=== PATIENT | male | born 1985 | race Caucasian/White ===

== ENCOUNTER 2020-11-13 09:22 | Emergency (ER) | payer BC, SELFPAY ==
--- NOTE | 2020-11-13 09:35 | ED.GENADULT ---
HPI - General Adult General Chief complaint: Unspecified Stated complaint: Chills,Rash Time Seen by Provider: 11/13/20 09:44 Source: patient and RN notes reviewed Mode of arrival: ambulatory Limitations: no limitations History of Present Illness HPI narrative: 35-year-old male presents concern for rash. Reports yesterday he had an itchy rash began on his legs and spread to his arms and torso. Reports he also had episodes of chills and body aches. He denies any fever, sore throat, headache, rhinorrhea, nasal congestion, cough, shortness of breath. Reports he was vaccinated for Covid. He denies known sick contacts. He reports taking Benadryl which improved the rash and itching. Reports after the Benadryl wore off the rash returned. He denies any swollen lips, swollen tongue, trouble breathing, nausea, vomiting, diarrhea. MD complaint: Rash Related Data Allergies Allergy/AdvReac Type Severity Reaction Status Date / Time No Known Allergies Allergy Verified 11/13/20 09:51 Review of Systems Review of Systems: CONSTITUTIONAL: Denies malaise, sweats, or fever. Reports chills ENT: Denies rhinorrhea, congestion, sinus pain, otalgia or sore throat. CARDIOVASCULAR: Denies chest pain, palpitations, or edema. RESPIRATORY: Denies cough or dyspnea. GASTROINTESTINAL: Denies abdominal pain, nausea, vomiting, diarrhea SKIN: Reports itchy rash that changes in nature. Reports rash on the legs, arms, torso MUSCULOSKELETAL: Reports myalgia. NEUROLOGIC: Denies headache. All systems reviewed & are unremarkable except as noted in HPI and below PMFSH Comments At time of signature, agree with nursing past medical, surgical, social and family history. There is no relevant family history pertinent to the presenting complaint Exam Narrative: GENERAL: Well-appearing, well-nourished, and in no acute distress. HEAD: Normocephalic, atraumatic. EYES: PERRLA, conjunctivae clear ENT: Mucous membranes moist. Oropharynx without edema, erythema or lesions. TM pearly [place] with sharp light reflex, auditory canal unremarkable NECK: Supple. No lymphadenopathy CHEST: Clear to auscultation, no wheezing, rales, or rhonchi, breath sounds equal. No respiratory distress. HEART: Regular rate and rhythm. SKIN: Warm, dry. Urticarial patches noted on the back, abdomen, bilateral legs. NEURO: Alert and oriented x3. PSYCH: Normal mood and affect Course Course Emergency Course: Patient is aware of diagnosis, understands and agrees to treatment plan. Anticipatory guidance given. Patient agrees to follow-up as directed and is aware of reasons to seek care at the emergency department. Portions of this record may have been created with voice recognition software Vital Signs Vital signs: Reviewed. Pt has been instructed to follow up with his primary care provider within the next week regarding his elevated blood pressure today. Medical Decision Making MDM Narrative Medical decision making narrative: Does not appear at this time to be erythema multiforme, bullous, SJS, TEN; no evidence at this time to suggest RMSF, endocarditis or Lyme disease; patient looks well, nontoxic and is tolerating oral intake; no neurologic signs or symptoms; no headache, photophobia or neck pain; afebrile; appropriate for initial outpatient treatment; discussed the importance of follow-up, patient agrees; question, viral exanthema, contact dermatitis, allergic dermatitis, eczema, urticaria. No soft palate or uvula edema, no tongue, lip edema or other mucosal involvement, no respiratory compromise, no stridor, no wheezing, no wheezing, no history of syncope, no hypotension, no nausea, vomiting, or diarrhea. Instructed patient to go to nearest ER immediately for any worsening symptoms including but not limited to: fever, spreading rash, pain, sore throat, headache, dizziness, chest pain, trouble breathing, or any symptoms concerning to the patient. Lab Data Lab results reviewed: Yes I reviewed the patien
[2020-11-13 09:36] VITALS: BP 123/82; PULSE 107; RESP 16; TEMP 36.9; O2SAT 100
== END 2020-11-13 10:21 | disposition home or self-care (01) ==
PROVIDERS: Emergency Provider Nurse Practitioner
DX: R21 Rash and other nonspecific skin eruption (principal); Z20.822 Contact with and (suspected) exposure to COVID-19
CPT/HCPCS: 87426; 99203; C9803; G0463

== ENCOUNTER 2020-11-15 08:16 | Emergency (ER) | payer BC, SELFPAY ==
[2020-11-15 08:29] VITALS: BP 120/80; PULSE 88; RESP 16; TEMP 36.2; O2SAT 99
--- NOTE | 2020-11-15 08:33 | ED.MALEGU ---
HPI - Male Genitourinary General Chief complaint: Urogenital-Male Stated complaint: painful urination Source: patient and RN notes reviewed Limitations: no limitations History of Present Illness HPI Narrative: The uncircumcised patient, previously mostly healthy, presents with urinary symptoms. Patient states he has a couple day history of urinary frequency, urgency, dysuria associated with rare pink-tinged hematuria. Patient states he has a prior history of UTI; no fever, low back pain, vomiting/diarrhea, rash, discharge. Symptoms are mild, worse with micturition ; patient advised to follow-up with his primary doctor. Related Data Allergies Allergy/AdvReac Type Severity Reaction Status Date / Time No Known Allergies Allergy Verified 11/15/20 08:23 Review of Systems Review of Systems: General/Constitutional: No weight loss,fever Eyes: N0: Redness,discharge Ears/Nose/Throat: No: Epistaxis,ear discharge Respiratory: Denies: Hemoptysis Gastrointestinal: No Vomiting, Bleeding-rectal Skin: No Lumps, eruption Neurologic: No Focal Weakness,Sz Hematologic: Denies: Petechiae/Purpura Psychiatric: No: Suicida ideationl All Other Systems: Reviewed and Negative PMFSH Comments At time of signature, agree with nursing past medical, surgical, social and family history. There is no relevant family history pertinent to the presenting complaint Exam Narrative: General Appearance: Well appearing, Conjunctiva clear Ears: External ear normal Nose: Normal nose Mouth/Throat: Normal appearing, Normal lips, Supple Respiratory: Airway patent, No respiratory distress Abdomen: Soft, Non-tender; bilateral descended testicles no inguinal hernia, uncircumcised phallus Musculoskeletal: Full ROM Skin: Warm, Dry Neurological: A&O x3, Normal affect Course Vital Signs Vital signs: Vital Signs Temperature 97.2 F L 11/15/20 08:29 Pulse Rate 88 11/15/20 08:29 Respiratory Rate 16 11/15/20 08:29 Blood Pressure 120/80 11/15/20 08:29 Pulse Oximetry 99 11/15/20 08:29 Temperature 97.2 F L 11/15/20 08:29 Pulse Rate 88 11/15/20 08:29 Respiratory Rate 16 11/15/20 08:29 Blood Pressure 120/80 11/15/20 08:29 Pulse Oximetry 99 11/15/20 08:29 MDM - Male Genitourinary Lab Data Labs: Urine Glucose Negative Reference Range: Negative Urine Bilirubin 1+ Reference Range: Negative Urine Ketone Negative Reference Range: Negative Urine Specific [place] 1.030 Reference Range:1.001-1.035 Urine Blood 3+ Reference Range: Negative * * Urine pH 5.5 Reference Range: 5.0-9.0 Urine Protein 2+ Reference Range: Negative Urine Urobilinogen 0.2 Reference Range: 0.2-1.0 Urine Nitrate Negative Reference Range: Negative Urine Leukocyte Trace Reference Range: Negative Urine Color [place] Reference Range: Yellow Urine Characteristics Clear Urine Characteristics Clear Discharge Plan Discharge Clinical Impression: Urinary tract infection Qualifiers: Urinary tract infection type: site unspecifie
== END 2020-11-15 08:40 | disposition home or self-care (01) ==
PROVIDERS: Emergency Provider Emergency Medicine
DX: N39.0 Urinary tract infection, site not specified (principal)
CPT/HCPCS: 81003; 87077; 87086; 87088; 87186; 87491; 87591; 99213; G0463

== ENCOUNTER 2021-09-22 08:30 | Emergency (ER) | payer OTHER, SELFPAY ==
[2021-09-22 08:39] VITALS: BP 131/82; PULSE 98; RESP 16; TEMP 36.4; O2SAT 100
--- NOTE | 2021-09-22 09:11 | ED.MALEGU ---
HPI - Male Genitourinary General Chief complaint: Urogenital-Male Stated complaint: Pain in testicles Time Seen by Provider: 09/22/21 09:11 Source: patient Mode of arrival: ambulatory Limitations: no limitations History of Present Illness HPI Narrative: 35 yo M presents with c/o fatigue, bodyaches and low grade temp for 3 to 4 days. Saw PCP and has neg covid, strep and flu test. Not having any URI symptoms. Reports aching to both testicles for 3 days without swelling, color change. No penile discharge, no concern for STI. hx of UTI, epididymitis. Thinks he needs abx for urinary related infection. Having low ABD pain only when testicles ache. did have back pain but resolved. Feels was more muscular related to playing with children. is aware of testicular torsion and stating pain is very mild and not concerned for that. All systems reviewed and negative except as noted above. Related Data Allergies Allergy/AdvReac Type Severity Reaction Status Date / Time No Known Allergies Allergy Verified 09/22/21 09:03 Review of Systems Review of Systems: CONSTITUTIONAL: Reports fatigue, fever, body aches. EYES: Denies visual changes, redness, or discharge. ENT: Denies rhinorrhea, congestion, sore throat, or otalgia. CARDIOVASCULAR: Denies chest pain, palpitations, or edema. RESPIRATORY: Denies cough or dyspnea. GASTROINTESTINAL: Denies abdominal pain, nausea, vomiting, or diarrhea. GENITOURINARY: Denies dysuria or hematuria. Reports intermittent aching to bilateral testicles. SKIN: Denies rash or itching. MUSCULOSKELETAL: Denies back pain, joint pain, or myalgia. NEUROLOGIC: Denies headache, numbness, or weakness. PSYCHIATRIC: Denies anxiety or depression. All other systems reviewed are negative, except as documented in HPI. PMFSH Comments At time of signature, agree with nursing past medical, surgical, social and family history. There is no relevant family history pertinent to the presenting complaint. Exam Narrative: GENERAL: This is a well-nourished, well-developed patient, in no apparent distress. HEAD: normocephalic, atraumatic. EYES: PERRL. Sclera clear/white. Vision is grossly intact. EARS: External ears normal NOSE: External nose normal NECK: Neck supple, non-tender without lymphadenopathy, masses or thyromegaly. CARDIOVASCULAR: Regular rate and rhythm without murmurs, gallops, or rubs. RESPIRATORY: Clear to auscultation. Breath sounds equal bilaterally. No wheezes, rales, or rhonchi. GASTROINTESTINAL: Abdomen soft, non-tender, nondistended. Bowel sounds are active. No hepato-splenomegaly, or palpable masses. No guarding. SKIN: warm, Dry, intact with no suspicious lesions or rash, good texture and turgor. NEURO: awake, alert, and oriented to person, place and time. There were no obvious focal neurologic abnormalities. Genital Exam: pt deferred EXTREMITIES: No joint tenderness, effusion, or edema noted. BACK: Nontender without deformity. No CVA tenderness. Course Course Level of Care: Express Care Visit Vital Signs Vital signs: Vital Signs Temperature 36.4 C L 09/22/21 08:39 Pulse Rate 98 09/22/21 08:39 Respiratory Rate 16 09/22/21 08:39 Blood Pressure 131/82 09/22/21 08:39 Pulse Oximetry 100 09/22/21 08:39 Oxygen Delivery Room Air 09/22/21 08:39 Temperature 36.4 C L 09/22/21 08:39 Pulse Rate 98 09/22/21 08:39 Respiratory Rate 16 09/22/21 08:39 Blood Pressure 131/82 09/22/21 08:39 Pulse Oximetry 100 09/22/21 08:39 Oxygen Delivery Room Air 09/22/21 08:39 reviewed MDM - Male Genitourinary MDM Narrative Medical decision making narrative: will treat pt with abx today due to symptoms and hx of UTI/epipdidymitis. denies concern for STI. glucose 3+. fingerstick glucose 104. Does not want urine culture sent. States last time bill was over $1,000. He also does not want KUB. has never had kidney stone and does not feel pain is bad enought to be kidney stone. reports he will go to th
[2021-09-22 09:27] LABS: Glucose Point of Care 104 mg/dl (65-105)
== END 2021-09-22 09:46 | disposition home or self-care (01) ==
PROVIDERS: Emergency Provider Nurse Practitioner Family
DX: N50.812 Left testicular pain (principal); N50.811 Right testicular pain; R50.9 Fever, unspecified
CPT/HCPCS: 81003; 82948; 99213; G0463

== ENCOUNTER → 2022-01-17 14:00 | Outpatient (CLI) | payer OTHER, SELFPAY ==
--- NOTE | ~2022-01-17 | XR_ITS ---
EXAMINATION: XR thoracic spine 3V DATE: 01/17/2022 14:11 INDICATION: Mid back pain. TECHNIQUE: 3 views of thoracic spine were obtained. COMPARISON: None. FINDINGS: Vertebral body heights are normal. There is mild chronic anterior wedging of T6, T7, and T8 vertebral bodies. There is mildly decreased disc height at T5-T6 and T7-T8. There is a gallstone in the gallbladder. IMPRESSION: 1. Mild thoracic spondylosis. 2. Cholelithiasis. Reviewed, dictated and finalized at location A.
== END ==
PROVIDERS: PCP Family Medicine; Visit Provider Family Medicine
DX: M54.9 Dorsalgia, unspecified (principal); M43.04 Spondylolysis, thoracic region; K80.20 Calculus of gallbladder without cholecystitis without obstruction
CPT/HCPCS: 72072